=== PATIENT | male | born 2000 | race Caucasian/White ===

== ENCOUNTER 2019-08-18 18:02 | Emergency (ER) | payer OTHER ==
[~2019-08-18] VITALS: Ht 175.3 cm; Wt 85.9 kg
[2019-08-18] MEDS ORDERED: LIDOCAINE 2% W/EPIN INJ 20ML **PRES FREE INJ ONE (18:45)
[2019-08-18] MEDS ORDERED: AUGM875T28 PO (19:41)
[2019-08-18] MEDS ORDERED: AUGMENTIN 875 MG TAB PO ONE (19:45)
[2019-08-18 20:01] VITALS: BP 128/82
[2019-08-20] MEDS ORDERED: BACT800T5 PO (09:46)
== END 2019-08-18 20:05 | disposition home or self-care (01) ==
LOC: M ED 18:02 → EEVIPCON 18:02 → M ED 20:05
DX: K61.1 Rectal abscess (principal)